=== PATIENT | male | born 1970 | race African-American/Black ===

== ENCOUNTER 2017-03-31 16:42 | Emergency (ER) | payer OTHER ==
[~2017-03-31] VITALS: Ht 180.3 cm; Wt 99.8 kg
[2017-03-31] MEDS ORDERED: Tylenol #3 tab (300mg/30mg) ORAL ONE (17:15)
[2017-03-31] MEDS ORDERED: ACETAMINOPHEN-1 EAC1 ORAL (17:34)
--- NOTE | 2017-03-31 17:41 | Emergency Room Report ---
History of Present Illness General Chief Complaint: Lower Extremity Injury Source: Patient, Caregiver Present Illness HPI 46YOM BIBEMS after spraining/inverting right ankle walking down hill while clearing [place] behind his father's house Able to bear weight Swelling and pain to lateral aspect No previous foot/ankle trauma EMS applied ICE, KARLI Denies pain to knee, right leg Allergies: Coded Allergies: No Known Allergies (Unverified , 03/31/17) Patient History Past Medical History: seizures, psych hx Past Surgical History: none Pertinent Family History: none Social History: Denies: smoking, alcohol use, drug use Immunizations: UTD Reviewed Nursing Documentation: PMH: Agreed, PSxH: Agreed Nursing Documentation-PMH Past Medical History: No History, Except For History Of Psychiatric Problem: Yes Hx Seizures: Yes Review of Systems All Other Systems: negative except mentioned in HPI Physical Exam Vital Signs Date Time Temp Pulse Resp B/P (MAP) Pulse Ox O2 Delivery O2 Flow Rate FiO2 03/31/17 17:00 97.5 87 16 138/82 100 Room Air Sp02 EP Interpretation: reviewed, normal General Appearance: normal inspection, well appearing, no apparent distress, alert Head: atraumatic ENT: normal ENT inspection, hearing grossly normal, normal voice Neck: normal inspection, full range of motion, supple, no bony tend Respiratory: normal inspection, lungs clear, normal breath sounds, no respiratory distress, no retraction, no wheezing Cardiovascular #1: regular rate, rhythm, no edema Gastrointestinal: normal inspection, normal bowel sounds, non tender, soft, no guarding, no hernia Genitourinary: no CVA tenderness Musculoskeletal: normal inspection, back normal, normal range of motion, Katherine' s Sign negative, other - Right ankle: Obvious mild swelling lateral ankle. No open wound. Able to viet/invert/ flex/extend. No ttp to knee, distal tib/fib Neurologic: normal inspection, alert, responsive, speech normal Psychiatric: normal inspection, judgement/insight normal, mood/affect normal Skin: normal inspection, normal color, no rash Medical Decision Making Diagnostic Impression: Primary Impression: Ankle sprain Qualified Codes: S93.401A - Sprain of unspecified ligament of right ankle, initial encounter ER Course Right ankle sprain with accidental trip and ankle twist No other injury Xrays negative DC home Rx T#3, RICE PMD followup Other X-Ray Diagnostic Results Other X-Ray Diagnostic Results : X-Ray ordered: Right ankle # of Views/Limited Vs Complete: 3 View Indication: Pain EP Interpretation: Yes Interpretation: no dislocation, no fractures Impression: Other - Lateral soft tisse swelling Electronically Signed by: Dr Uriah Wooten MD Last Vital Signs Date Time Temp Pulse Resp B/P (MAP) Pulse Ox O2 Delivery O2 Flow Rate FiO2 03/31/17 17:00 97.5 87 16 138/82 100 Room Air Status: improved Disposition: HOME, SELF-CARE Condition: Improved Scripts Acetaminophen With Codeine (T#3) (TYLENOL #3 TAB*) Y Tab 1 TAB ORAL Q8H Y for For Pain, #20 TAB Prov: URIAH WOOTEN M.D. 03/31/17 Patient Instructions: Ankle Sprain URIAH WOOTEN M.D. Mar 31, 2017 17:41
[2017-03-31 17:50] VITALS: BP 128/80
--- NOTE | 2017-04-01 10:08 | Diagnostic Imaging Report ---
Indication: PAIN Technique: 3 views of the right ankle Comparison: none Findings: No acute fractures. No dislocations. Joint spaces are preserved. Normal mineralization. No radiopaque foreign body. Is minimal soft tissue swelling laterally Impression: No acute bony trauma Minimal lateral soft tissue swelling This agrees with the preliminary interpretation provided by the emergency room physician
== END 2017-03-31 17:50 | disposition home or self-care (01) ==
LOC: EMR 17:15
DX: S93.401A Sprain of unspecified ligament of right ankle, initial encounter (principal); X50.1XXA Overexertion from prolonged static or awkward postures, initial encounter; Y93.01 Activity, walking, marching and hiking; Y92.89 Other specified places as the place of occurrence of the external cause
CPT/HCPCS: 99283